=== PATIENT | female | born 2005 | race Caucasian/White ===

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

== ENCOUNTER 2025-04-05 14:11 | Outpatient (CLI) | payer OTHER, SELFPAY | END 2025-04-05 14:12 | disposition home or self-care (01) | LOC: NFLDREF 04-09 12:27 | PROVIDERS: PCP Nurse Practitioner Pediatrics; Referring Provider Nurse Practitioner Pediatrics; Visit Provider Physician Assistant Medical | DX: R51.9 Headache, unspecified (principal); R53.83 Other fatigue | CPT/HCPCS: 82306; 82728; 84443 ==